=== PATIENT | female | born 1955 | race Caucasian/White ===

== ENCOUNTER 2018-12-14 01:23 | Emergency (ER) | payer MEDICARE, MEDICAID ==
[~2018-12-14] VITALS: Ht 154.9 cm; Wt 59.0 kg
[2018-12-14] MEDS ORDERED: KETOROLAC 30MG/ML VIAL IM ONE (02:45)
[2018-12-14 04:01] VITALS: BP 110/71
== END 2018-12-14 04:02 | disposition home or self-care (01) ==
LOC: ER 01:23
DX: K08.89 Other specified disorders of teeth and supporting structures (principal); F17.200 Nicotine dependence, unspecified, uncomplicated
CPT/HCPCS: 96372; 99283; J1885

== ENCOUNTER 2019-07-04 16:10 | Emergency (ER) | payer MEDICARE, MEDICAID ==
[~2019-07-04] VITALS: Ht 154.9 cm; Wt 59.0 kg
[2019-07-04 16:30] VITALS: BP 102/65
== END 2019-07-04 20:13 | disposition home or self-care (01) ==
LOC: ER 16:10
DX: J06.9 Acute upper respiratory infection, unspecified (principal)
CPT/HCPCS: 71045; 87804; 99284